=== PATIENT | female | born 1965 | race Hispanic/Latino ===

== ENCOUNTER 2024-04-02 10:31 | Emergency (ER) | payer SELFPAY ==
[2024-04-02] MEDS ORDERED: Famotidine 20 MG TAB ONE (11:08)
[2024-04-02] MEDS ORDERED: Dexamethasone 10 MG/ML VIAL ONE (11:08)
[2024-04-02] MEDS ORDERED: Ketorolac Tromethamine 30 MG (1 mL) VIAL ONE (11:11)
[2024-04-02 11:16] LABS: #Basophils 0.05 10x3/uL (0.0-0.2); %Basophils 0.5 % (0.0-1.0); %Lymphocytes 31.5 % (21.0-51.0); %Monocytes 7.1 % (0.0-10.0); %Neutrophils 57.7 % (42.0-75.0); Hematocrit 38.7 % (36.0-47.0); Hemoglobin 13.8 g/dL (12.0-16.0); Mean Corpuscular HGB CONC 35.7 g/dL (32.0-36.0); Mean Corpuscular Hemoglobin 33.3 pg (27.0-31.0); Mean Corpuscular Volume 93.5 fL (78.0-98.0); Mean Platelet Volume 10.3 fL (7.4-10.4); Platelet Count 300 10x3/uL (130-400); RBC Distribution Width 11.9 % (11.5-14.5); Red Blood Cell (RBC) Count 4.14 mill/uL (4.20-5.40)
[2024-04-02 11:25] LABS: Bacteria/HPF Rare-Few HPF (None Seen); Bilirubin Negative (Negative); Blood, Urine Negative (Negative); CAUTI Indications for Culture Dysuria,urgency,freq; Clarity Clear (Clear); Glucose, Urine (Dipstick) Normal (Negative); Ketone, Urine Negative (Negative); Leukocyte Negative Leu/uL (Negative); Nitrite Negative (Negative); Protein, Urine (Dipstick) Negative (Neg-Trace); RBC/HPF 0-3 HPF (0-3); Specific Gravity, Urine 1.021 (1.002-1.036); Urobilinogen Normal mg/dL (Less than 2); WBC/HPF 0-3 HPF (0-3); pH, Urine 5.5 (5.0-9.0)
[2024-04-02 11:26] LABS: Urine Culture Reflex No No
[2024-04-02 11:41] LABS: Troponin I Less than 0.010 ng/mL (< 0.028)
[2024-04-02 12:02] LABS: ALT (SGPT) 18 U/L (8-55); AST (SGOT) 20 U/L (5-34); Albumin 3.7 g/dL (3.5-5.0); Alkaline Phosphatase 83 U/L (40-110); Anion Gap 16 mmol/L (10-20); BUN (Urea Nitrogen) 12 mg/dL (9.8-20.1); Bilirubin, Total 0.9 mg/dL (0.2-1.2); Calc. Creatinine Clearance 0 mL/min (70-130); Calcium 9.2 mg/dL (7.8-10.44); Carbon Dioxide 22 mmol/L (22-29); Chloride 105 mmol/L (98-107); Estimated GFR 70; Globulin 3.5 g/dL (2.4-3.5); Glucose 93 mg/dL (70-105); Lipase 22 U/L (8-78); Protein, Total 7.2 g/dL (6.0-8.3); Sodium 139 mmol/L (136-145)
[2024-04-02 13:00] LABS: Magnesium 1.9 mg/dL (1.6-2.6)
== END 2024-04-02 14:54 | disposition home or self-care (01) ==
LOC: ERS 10:31
DX: R07.89 Other chest pain (principal); R10.9 Unspecified abdominal pain; E03.9 Hypothyroidism, unspecified; I10 Essential (primary) hypertension; Z79.890 Hormone replacement therapy; E78.00 Pure hypercholesterolemia, unspecified; Z79.899 Other long term (current) drug therapy
CPT/HCPCS: 36415; 71046; 74177; 76705; 80053; 81001; 83690; 83735; 84484; 85025; 87428; 93005; 96372; J1100; J1885